=== PATIENT | female | born 1955 | race Caucasian/White ===

== ENCOUNTER 2022-06-18 12:57 | Emergency (ER) | payer OTHER ==
[~2022-06-18] VITALS: Ht 177.8 cm; Wt 91.2 kg
[2022-06-18] MEDS ORDERED: COZAAR25 MG PO (13:06)
[2022-06-18] MEDS ORDERED: KETO10TA2 PO (14:46)
== END 2022-06-18 15:22 | disposition home or self-care (01) ==
LOC: ER 12:57
DX: S49.92XA Unspecified injury of left shoulder and upper arm, initial encounter (principal); W19.XXXA Unspecified fall, initial encounter; Y93.9 Activity, unspecified; Y92.814 Boat as the place of occurrence of the external cause; Z88.0 Allergy status to penicillin